=== PATIENT | male | born 1975 | race Hispanic/Latino ===

== ENCOUNTER 2017-09-15 12:40 | Emergency (ER) | payer OTHER ==
[2017-09-15 12:53] VITALS: BP 160/82; PULSE 56; RESP 18; TEMP 98; O2SAT 99
--- NOTE | 2017-09-15 13:28 | C.PDOC ---
History Of Present Illness 42 year old male brought to the ED by EMS for evaluation of left-sided chest pain which began at around 1000 this morning. Patient was given two Aspirins by EMS in field. Patient states he still feels some chest pain/pressure, but his symptoms have improved. Patient states he had a normal stress test last year, but is unable to recall the name of his design quality engineer. He denies fever, chills, cough, shortness of breath, palpitations, leg edema. Time Seen by Provider: 09/15/17 13:04 Chief Complaint (Nursing): Chest Pain History Per: Patient, EMS History/Exam Limitations: no limitations Onset/Duration Of Symptoms: Hrs Current Symptoms Are (Timing): Better Severity: Moderate Quality: "Pain" Additional History Per: Patient Past Medical History Reviewed: Historical Data, Nursing Documentation, Vital Signs Vital Signs: Last Vital Signs Temp 98.0 F 09/15/17 12:45 Pulse 56 L 09/15/17 12:45 Resp 18 09/15/17 12:45 BP 160/82 H 09/15/17 12:45 Pulse Ox 99 09/15/17 13:44 - Medical History PMH: No Chronic Diseases Surgical History: Back Surgery Family History: States: No Known Family Hx - Social History Hx Alcohol Use: Yes Hx Substance Use: No - Immunization History Hx Influenza Vaccination: No Review Of Systems Except As Marked, All Systems Reviewed And Found Negative. Constitutional: Negative for: Fever, Chills Cardiovascular: Positive for: Chest Pain (left-sided). Negative for: Palpitations Respiratory: Negative for: Cough, Shortness of Breath Gastrointestinal: Negative for: Nausea, Vomiting, Abdominal Pain, Diarrhea Physical Exam - Physical Exam Appears: Well, Non-toxic, No Acute Distress Skin: Normal Color, Warm, Dry Eye(s): bilateral: Normal Inspection Oral Mucosa: Moist Neck: Supple Cardiovascular: Rhythm Regular, No Murmur Respiratory: Normal Breath Sounds, No Rales, No Rhonchi, No Wheezing Extremity: Normal ROM Neurological/Psych: Oriented x3 ED Course And Treatment ECG Rhythm: Sinus Bradycardia ECG Interpretation: Abnormal Interpretation Of ECG: Sinus Bradycardia with rate 53bpm. Normal axis. Incomplete RBBB. No ST/T wave changes. Rate From EC O2 Sat by Pulse Oximetry: 99 (on RA) Pulse Ox Interpretation: Normal Progress Note: This patient states he does not want anything else done, and would like to leave against my medical advice. He has signed the AMA form. I have personally explained to the patient that choosing to do so may result in permanent bodily harm, heart attack or . The patient has no questions, was instructed to follow up with his PMDin 1-2 days and design quality engineer within 1 week. He understands he should return to the ED immediately if his symptoms worsen/return. Reassessment Condition: Improved Disposition Counseled Patient/Family Regarding: Studies Performed, Diagnosis, Need For Followup - Disposition Referrals: [facility] [Outside] Nav Gutierrez MD [Staff Provider] - Disposition: AGAINST MEDICAL ADVICE Disposition Time: 13:30 Condition: STABLE Additional Instructions: TAKE ASPIRIN 81MG DAILY FOLLOW UP WITH YOUR OR [facility] IN 1-2 DAYS RETURN TO ER IMMEDIATELY IF YOUR SYMPTOMS RETURN/WORSEN Instructions: Chest Pain, Chest Pain That Is Not Caused by the Heart (DC), Leaving Against Medical Advice Forms: [employer] (Georgian), (AMA) Informed Refusal Print Language: TURKISH - Clinical Impression Clinical Impression: Chest pain, Left against medical advice - Scribe Statement The provider has reviewed the documentation as recorded by the Scribe (Emma Anderson) Provider Attestation: All medical record entries made by the Scribe were at my direction and personally dictated by me. I have reviewed the chart and agree that the record accurately reflects my personal performance of the history, physical exam, medical decision making, and the department course for this patient. I have also personally directed, reviewed, and agree with the discharge instructions and disposition.
== END 2017-09-15 13:50 | disposition left against medical advice (07) ==
LOC: C.ER 12:40
DX: R07.9 Chest pain, unspecified (principal)